=== PATIENT | male | born 1980 ===

== ENCOUNTER 2023-10-19 10:17 | Outpatient (CLI) | payer OTHER ==
--- NOTE | 2023-10-19 12:26 | Ultrasound Report ---
PROCEDURE: Abdomen Limited INDICATIONS: ELEVATED LIVER ENZYMES TECHNIQUE: Real-time focused scanning was performed of the abdomen, with image documentation. COMPARISONS: None. FINDINGS: Liver: Increased liver echogenicity, commonly mild hepatic steatosis. Gallbladder: No gallstones, sludge, wall thickening or pericholecystic edema. Biliary ducts: Intrahepatic bile ducts are non-dilated. Extrahepatic bile duct caliber measures 3.5 mm. Normal is 6-7 mm or less in diameter, or 10 mm or less post-cholecystectomy. Pancreas: Visualized portions of the pancreas are sonographically normal. Right kidney: Normal in size and echotexture. Right kidney measures 12.7 cm long. No hydronephrosis or nephrolithiasis. No solid masses. No complex renal cystic lesions which require follow-up. IVC: Intrahepatic inferior vena cava is patent. Miscellaneous: No free abdominal fluid. Aorta appears patent. IMPRESSION: Hepatic steatosis. No focal intrahepatic abnormalities. Reviewed by: Leighton Grewal MD on 10/19/2023 12:24 PM PDT Approved by: Leighton Grewal MD on 10/19/2023 12:24 PM PDT Station ID: [id number]
== END 2023-10-19 10:18 | disposition home or self-care (01) ==
LOC: DI 10:17
PROVIDERS: ATTEND Family Medicine
DX: K76.0 Fatty (change of) liver, not elsewhere classified (principal)